=== PATIENT | male | born 1975 | race Caucasian/White ===

== ENCOUNTER 2018-03-26 09:23 | Emergency (ER) | payer MEDICARE ==
[~2018-03-26] VITALS: Ht 190.5 cm; Wt 75.0 kg
[2018-03-26 09:29] VITALS: Ht 190.5 cm; Wt 75.0 kg
[2018-03-26] MEDS ORDERED: LITHIUM CARBON300 MG (09:30)
[2018-03-26] MEDS ORDERED: VISTARIL25 MG (09:30)
[2018-03-26] MEDS ORDERED: SEROQUEL25 MG (09:30)
[2018-03-26 09:48] LABS: BASOPHILS 0.3 % (0-2); EOSINOPHILS 0.2 % (0-7); HEMATOCRIT 41.2 % (42.0-54.0); HEMOGLOBIN 14.4 g/dL (13.5-17.5); IMMATURE GRANULOCYTES 0.3 % (0-5); LYMPHOCYTES 17.7 % (15-50); MCH 30.9 pg (26.0-34.0); MCV 88.4 fL (80.0-100.0); MONOCYTES 6.8 % (2-11); NEUTROPHILS 74.7 % (40-80); PLATELET COUNT 321 10x3/uL (130-400); RBC 4.66 10x6/uL (4.20-6.10); RDW 13.4 % (11.5-14.5); WBC 13.7 10x3/uL (4.8-10.8)
[2018-03-26 10:00] LABS: LITHIUM < 0.20 mmol/L (0.60-1.20)
[2018-03-26 10:06] LABS: ALBUMIN 4.3 g/dL (3.4-5.0); ANION GAP 17.8 mmol/L (8-16); BILIRUBIN - TOTAL 0.9 mg/dL (0.2-1.3); CALCIUM 9.4 mg/dL (8.5-10.1); CARBON DIOXIDE 25.7 mmol/L (21.0-32.0); CREATININE - SERUM 1.3 mg/dL (0.6-1.3); MAGNESIUM - SERUM 2.3 mg/dL (1.8-2.4); POTASSIUM - SERUM 3.5 mmol/L (3.5-5.1); PROTEIN - SERUM 7.9 g/dL (6.4-8.2)
[2018-03-26 11:31] LABS: UDS - AMPHET POSITIVE QUAL (NEGATIVE); UDS - BARB NEGATIVE QUAL (NEGATIVE); UDS - BENZO POSITIVE QUAL (NEGATIVE); UDS - COCAINE NEGATIVE QUAL (NEGATIVE); UDS - OPIATE POSITIVE QUAL (NEGATIVE); UDS - PCP NEGATIVE QUAL (NEGATIVE); UDS - THC POSITIVE QUAL (NEGATIVE)
[2018-03-26 11:52] LABS: APPEARANCE CLEAR (CLEAR); BILIRUBIN NEGATIVE (NEGATIVE); COLOR DK YELLOW (YELLOW); GLUCOSE NEGATIVE (NEGATIVE); KETONE MODERATE mg/dL (NEGATIVE); NITRITE NEGATIVE (NEGATIVE); PROTEIN NEGATIVE (NEGATIVE); SPECIFIC GRAVITY 1.025 (1.005-1.020); UROBILINOGEN NORMAL (NORMAL)
[2018-03-26 12:39] VITALS: BP 117/66
== END 2018-03-26 12:39 | disposition home or self-care (01) ==
LOC: D.ER 09:23 → EDBD 09:23 → D.ER 12:39
PROVIDERS: Family Medicine
DX: Z91.19 Patient's noncompliance with other medical treatment and regimen (principal); D72.829 Elevated white blood cell count, unspecified; F15.10 Other stimulant abuse, uncomplicated; F17.200 Nicotine dependence, unspecified, uncomplicated

== ENCOUNTER 2019-08-17 14:47 | Inpatient (IN) | payer MEDICARE ==
[2019-08-17] VITALS (7 sets, daily range): BP systolic 121–143; BP diastolic 60–99; Ht 190.5 cm; Wt 91.4 kg
[~2019-08-17] VITALS: Ht 190.5 cm; Wt 91.4 kg
[~2019-08-17 14:47] MED LIST: LITHIUM CARBON300 MG; SEROQUEL25 MG; VISTARIL25 MG
[2019-08-17 15:44] LABS: BASOPHILS 0.1 % (0-2); EOSINOPHILS 0.4 % (0-7); HEMATOCRIT 44.5 % (42.0-54.0); HEMOGLOBIN 15.1 g/dL (13.5-17.5); IMMATURE GRANULOCYTES 0.3 % (0-5); LYMPHOCYTES 17.9 % (15-50); MCH 30.1 pg (26.0-34.0); MCHC 33.9 g/dL (31.0-37.0); MCV 88.6 fL (80.0-100.0); MEAN PLATELET VOLUME 9.1 fL (7.4-10.4); MONOCYTES 7.8 % (2-11); NEUTROPHILS 73.5 % (40-80); RBC 5.02 10x6/uL (4.20-6.10); RDW 13.2 % (11.5-14.5); WBC 7.6 10x3/uL (4.8-10.8)
[2019-08-17 15:45] LABS: PLATELET COUNT 247 10x3/uL (130-400)
[2019-08-17 15:52] LABS: BILIRUBIN NEGATIVE (NEGATIVE); GLUCOSE NEGATIVE (NEGATIVE); KETONE MODERATE mg/dL (NEGATIVE); NITRITE NEGATIVE (NEGATIVE); UROBILINOGEN NORMAL (NORMAL)
[2019-08-17 15:55] LABS: INR 1.11 (0.85-1.17); PROTIME 14.3 SECONDS (11.6-15.0)
--- NOTE | 2019-08-17 15:58 | NUR ---
THIS NURSE ATTEMPTED TO COMPLETE SUICIDE ASSESSMENT AT THIS TIME. UNABLE TO COMPLETE DUE TO PT'S CONDITION. PT IN SAFE ROOM FOR SAFETY. PT NOT PLACED IN PAPER SCRUBS FOR SAFETY DUE TO NOT AVAILABLE AT THIS TIME. CHARGE NURSE AND ATTENDING NOTIFIED. WILL ATTEMPT TO COMPLETE ASSESSMENT AT LATER TIME IF NEEDED PER ATTENDING.
[2019-08-17 16:05] LABS: UDS - AMPHET POSITIVE QUAL (NEGATIVE); UDS - BARB NEGATIVE QUAL (NEGATIVE); UDS - BENZO NEGATIVE QUAL (NEGATIVE); UDS - COCAINE NEGATIVE QUAL (NEGATIVE); UDS - OPIATE POSITIVE QUAL (NEGATIVE); UDS - PCP NEGATIVE QUAL (NEGATIVE); UDS - THC POSITIVE QUAL (NEGATIVE)
[2019-08-17 16:14] LABS: ALBUMIN 4.4 g/dL (3.4-5.0); ALKALINE PHOSPHATASE 68 U/L (30-120); ALT (SGPT) 31 U/L (10-68); BILIRUBIN - TOTAL 0.84 mg/dL (0.2-1.3); CALCIUM 9.4 mg/dL (8.5-10.1); CHLORIDE - SERUM 100 mmol/L (98-107); CKMB 27.5 U/L (0.0-3.6); CREATININE - SERUM 1.4 mg/dL (0.6-1.3); GLUCOSE 76 mg/dL (74-106); MAGNESIUM - SERUM 2.3 mg/dL (1.8-2.4); POTASSIUM - SERUM 3.4 mmol/L (3.5-5.1); PROTEIN - SERUM 7.7 g/dL (6.4-8.2); SODIUM 138 mmol/L (136-145); eGFR NON AFRICAN AMERICAN 59 mL/min (90-120)
[2019-08-17 16:15] LABS: CALC OSMOLALITY 276 mosm/kg (275-300); CREATINE KINASE 1560 UL (21-232); TROPONIN-I < 0.017 ng/mL (0.000-0.060); UREA NITROGEN 17 mg/dL (7-18)
--- NOTE | 2019-08-17 17:50 | NUR ---
PT ARRIVED TO UNIT VIA ER STRETCHER. TRANSFERRED TO ICU BED AND HOOKED UP TO ICU MONITOR. VSS. PT LETHARGIC AND FALLS ASLEEP EASILY. AROUSES TO GENTLE SHAKING AND VERBAL STIMULI. CURRENTLY UNABLE TO ANSWER QUESTIONS DUE TO FALLING ASLEEP. DOES FOLLOW SOME SIMPLE COMMANDS. WILL CONTINUE TO MONITOR
--- NOTE | 2019-08-17 19:00 | NUR ---
SHIFT ASSESSMENT COMPLETED. PT CARE ASSUMED, MONITORS ON AND WORKING, VITALS STABLE, CALL LIGHT WITHIN REACH. SEE FLOW SHEET FOR FURTHER DETAILS. WILL CONTINUE TO OBSERVE. PT RESTING QUITELY.
--- NOTE | 2019-08-17 21:00 | NUR ---
pt resting quitely, no changes, call light within reach, will continue to observe.
[2019-08-17 22:49] LABS: CREATINE KINASE 981 UL (21-232); TROPONIN-I < 0.017 ng/mL (0.000-0.060)
--- NOTE | 2019-08-17 23:00 | NUR ---
PT LYING IN BED RESTING RESTING QUITELY. MONITORS ON AND WORKING, VITALS STABLE. CALL LIGHT WITHIN REACH, SEE FLOW SHEET FOR FURTHER DETAILS. WILL CONTINUE TO OBSERVE.
[2019-08-18] VITALS (15 sets, daily range): BP systolic 97–133; BP diastolic 57–99
--- NOTE | 2019-08-18 01:00 | NUR ---
PT AROUSES TO VOICE, PT CONFUSED AND DISORIENTED TO TIME, PLACE AND SITUATION. PT EASILY REORIENTED, PT VOIDS VIA URINAL, GIVEN JELLO AND SPRITE PER PTS REQUEST. CALL LIGHT WITHIN REACH, WILL CONTINUE TO OBSERVE.
--- NOTE | 2019-08-18 03:00 | NUR ---
NICHOLAS French AND ANTOINE BROUGHT TO PT PER PTS REQUEST, PT PLEASANT MOOD, COOPERATIVE. MONITORS ON AND WORKING, VITALS STABLE. CALL LIGHT WITHIN REACH, WILL CONTINUE TO OBSERVE. SEE FLOW SHEET FOR FURTHER DETAILS. WILL CONTINUE TO OBSERVE.
[2019-08-18 04:21] LABS: CKMB 12.7 U/L (0.0-3.6)
[2019-08-18 04:23] LABS: CREATINE KINASE 814 UL (21-232); TROPONIN-I < 0.017 ng/mL (0.000-0.060)
--- NOTE | 2019-08-18 05:00 | NUR ---
pt sitting up in bed, monitors on and working, vitals stable, call light within reach, will continue to observe.
--- NOTE | 2019-08-18 07:00 | NUR ---
PT REPORT RECEIVED FROM ANTISQUEAK WORKER NURSE. NO ACUTE SIGNS OF DISTRESS NOTED. PT RESTING IN BED COMFORTABLY. SHIFT ASSESSMENT COMPLETED. WILL CONTINUE TO MONITOR
[2019-08-18 07:10] LABS: BASOPHILS 0.1 % (0-2); EOSINOPHILS 1.2 % (0-7); HEMOGLOBIN 13.1 g/dL (13.5-17.5); IMMATURE GRANULOCYTES 0.1 % (0-5); LYMPHOCYTES 27.5 % (15-50); MCH 29.7 pg (26.0-34.0); MCHC 32.8 g/dL (31.0-37.0); MONOCYTES 7.9 % (2-11); NEUTROPHILS 63.2 % (40-80); PLATELET COUNT 247 10x3/uL (130-400); RBC 4.41 10x6/uL (4.20-6.10); RDW 13.5 % (11.5-14.5); WBC 7.3 10x3/uL (4.8-10.8)
[2019-08-18 07:20] LABS: MCV 90.7 fL (80.0-100.0)
[2019-08-18 07:32] LABS: ANION GAP 13.1 mmol/L (8-16); BILIRUBIN - TOTAL 0.59 mg/dL (0.2-1.3); CALCIUM 7.9 mg/dL (8.5-10.1); CREATININE - SERUM 1.2 mg/dL (0.6-1.3); MAGNESIUM - SERUM 2.1 mg/dL (1.8-2.4); POTASSIUM - SERUM 3.1 mmol/L (3.5-5.1); PROTEIN - SERUM 5.9 g/dL (6.4-8.2)
[2019-08-18 07:34] LABS: ALBUMIN 3.2 g/dL (3.4-5.0)
--- NOTE | 2019-08-18 09:20 | NUR ---
LAB IN ROOM. DRAWING BLOOD. WILL CONTINUE TO MONITOR
[2019-08-18 10:24] LABS: CREATINE KINASE 649 UL (21-232); TROPONIN-I < 0.017 ng/mL (0.000-0.060)
--- NOTE | 2019-08-18 10:30 | NUR ---
ASSISTED PT UP TO BEDSIDE COMMODE. HAD LARGE BM. ASSISTED BACK TO BED. WANTS TO WALK AROUND A LITTLE BIT. WILL CONTINUE TO MONTIOR
--- NOTE | 2019-08-18 17:44 | NUR ---
RECEIVED REPORT FROM GOMEZ IN ICU. PATIENT TO UNIT SOON.
--- NOTE | 2019-08-18 18:23 | NUR ---
TRANSFERRED TO 2115 VIA WHEECHAIR TO 2115, PRIMARY NURSE BRUNILDA AT BEDSIDE, AAO, AWAITING TO TAKE A SHOWER
--- NOTE | 2019-08-18 18:26 | NUR ---
PATIENT ARRIVED TO UNIT VIA WHEELCHAIR FROM ICU AT THIS TIME. PATIENT ADMITTED TO ROOM 2115. ALERT/ORIENTED. TELEMETRY APPLIED. PATIENT WITH ATTENTION TOWARD TELEVISION AT THIS TIME. NO DISTRESS.
--- NOTE | 2019-08-18 18:35 | NUR ---
TELEMETRY, PATIENT IS SR WITH RATE OF 79. NO DISTRESS.
--- NOTE | 2019-08-18 19:08 | NUR ---
IV FLUIDS INFUSING ORDERED AT THIS TIME. NO DISTRESS.
--- NOTE | 2019-08-18 22:20 | NUR ---
PT ASKING FOR SOMETHING TO HELP HIM REST, PAGE OUT TO DIRECTOR OF HOME ECONOMICS.
--- NOTE | 2019-08-18 23:08 | NUR ---
BENADRYL 25 MG GIVEN AT PT REQUEST FOR INSOMNIA.
[2019-08-19] VITALS: BP 113/67
--- NOTE | 2019-08-19 00:57 | NUR ---
ICE WATER AND LEMON [place] GIVEN AT PT REQUEST.
[2019-08-19 04:00] VITALS: BP 127/81
[2019-08-19 06:11] LABS: BASOPHILS 0.3 % (0-2); EOSINOPHILS 1.4 % (0-7); HEMATOCRIT 37.7 % (42.0-54.0); HEMOGLOBIN 12.3 g/dL (13.5-17.5); LYMPHOCYTES 31.4 % (15-50); MCH 29.6 pg (26.0-34.0); MCHC 32.6 g/dL (31.0-37.0); MCV 90.6 fL (80.0-100.0); MONOCYTES 7.9 % (2-11); RBC 4.16 10x6/uL (4.20-6.10); RDW 13.7 % (11.5-14.5); WBC 6.5 10x3/uL (4.8-10.8)
[2019-08-19 06:27] LABS: PLATELET COUNT 182 10x3/uL (130-400)
[2019-08-19 07:01] LABS: ALBUMIN 3.1 g/dL (3.4-5.0); ALKALINE PHOSPHATASE 57 U/L (30-120); BILIRUBIN - TOTAL 0.12 mg/dL (0.2-1.3); CALC OSMOLALITY 277 mosm/kg (275-300); CALCIUM 8.3 mg/dL (8.5-10.1); CARBON DIOXIDE 25.3 mmol/L (21.0-32.0); CHLORIDE - SERUM 108 mmol/L (98-107); GLUCOSE 103 mg/dL (74-106); MAGNESIUM - SERUM 2.2 mg/dL (1.8-2.4); PROTEIN - SERUM 5.4 g/dL (6.4-8.2); SODIUM 140 mmol/L (136-145); UREA NITROGEN 10 mg/dL (7-18); eGFR NON AFRICAN AMERICAN 87 mL/min (90-120)
--- NOTE | 2019-08-19 07:10 | NUR ---
REPORT RECEIVED FROM BAG CUTTER ANDPATIENT CARE ASSUMED. RECEIVED IN REPORT THAT PATIENT IS REFUSING MOST ALL MEDS AND TMTS.PATIENT LAYING IN BED ON BACK WITH EYES CLOSED AND BREATHING EVENLY. WILL CONTINUE WITH PLAN OF CARE. SR UP X 2 BED IN LOW POSITION AND CALL LIGHT IN REACH.
[2019-08-19 07:12] LABS: ALT (SGPT) 25 U/L (10-68)
[2019-08-19 09:00] VITALS: BP 118/76
[2019-08-19 09:38] LABS: CKMB 3.4 U/L (0.0-3.6)
[2019-08-19 09:39] LABS: CREATINE KINASE 372 UL (21-232)
--- NOTE | 2019-08-19 11:14 | EC ---
PATIENT:HORACE AGUILERA DATE OF SERVICE: 08/17/19 SEX: M MEDICAL RECORD: [id number] DATE OF : [birth year] LOCATION:D.M2 D.211 AGE OF PATIENT: 43 ADMISSION DATE: 08/18/19 REFERRING PHYSICIAN: INTERPRETING PHYSICIAN: DAVID GILLIAM MD ECHOCARDIOGRAM REPORT ECHO CHARGES 4 ECHO COMPLETE Date: 08/18/19 CLINICAL DIAGNOSIS: CP/IV DRUG USE ECHOCARDIOGRAPHIC MEASUREMENTS (adult normal given) AC root (d.<3.7cm) 3.9 cm LV Septum d (<1.2 cm> 1.3 cm Valve Excursion 2.5 cm LV Septum (systole) 1.7 cm Left Atria (s.<4.0cm> 3.7 cm LVPW d(<1.2cm) 1.0 cm RV (d.<2.3cm) 2.5 cm LVPW (sytole) 2.0 cm LV diastole(<5.6CM) 5.3 cm MV E-F(>70mm/sec) cm LV systole 3.5 cm LVOT Diameter 2.1 cm MV exc.(>10mm) cm Est.ejection fraction (50-75%) % DOPPLER: LVIT cm/sec A 39.0 cm/sec E 74.0 cm/sec LA cm/sec RVSP 27.0 mmHg LVOT 86.0 cm/sec AOP1/2T m/s Asc. Ao 118 cm/sec RVOT 62.0 cm/sec RA cm/sec PA 83.0 cm/sec AV Gradient Peak 5.6 mmHg AV Mean 2.8 mmHg AV Area 2.2 cm MV Gradient Peak 3.4 mmHg MV Mean 1.0 mmHg MV Area cm COMMENTS: Parts Cataloguer: Daniel ZHOUOE Scarfing Machine Operator: 3 Dr. Oneill TAPE# PACS Pericardial Effusion N DATE OF SERVICE: Adequate 2D, color flow imaging, spectral Doppler, and M-Mode. Mild LVH. LV internal dimension is normal. Wall motion is normal. EF is greater that or equal to 55%. Aortic valve is tricuspid. No evidence of stenosis by Doppler interrogation. Left atrium is normal. Mitral valve appears normal. Trivial MR. Right-sided chambers are grossly normal. Mild TR. No evidence of vegetation in all 4 cardiac valves. ECHOCARDIOGRAM REPORT [id number] HORACE AGUILERA TRANSINT:[id number] Voice Confirmation ID: [id number] DOCUMENT ID: [id number] DAVID GILLIAM MD at 1114 CC: [id number] DICTATION DATE: 08/18/19 1309 GROUNDS KEEPER: 08/18/19 1425 ADM IN [facility] [address] [place] [address]
[2019-08-19 17:08] VITALS: BP 129/78
[2019-08-19 20:00] VITALS: BP 131/78
--- NOTE | 2019-08-19 21:16 | NUR ---
PT REFUSING TO WEAR TELEMETRY, TELEMETRY BOX RETURNED TO CO.
--- NOTE | 2019-08-20 03:14 | NUR ---
I have reviewed this patient and I concur with the Shift Assessment completed by the Licensed Practical Nurse today this shift.
--- NOTE | 2019-08-20 03:39 | NUR ---
RESTING WITH EYES CLOSED, RESPERATONS EVEN, NO S/S DISTRESS NOTED.
[2019-08-20 06:44] LABS: BASOPHILS 0.2 % (0-2); EOSINOPHILS 2.1 % (0-7); HEMATOCRIT 39.5 % (42.0-54.0); HEMOGLOBIN 13.1 g/dL (13.5-17.5); IMMATURE GRANULOCYTES 0.2 % (0-5); LYMPHOCYTES 31.1 % (15-50); MCH 29.7 pg (26.0-34.0); MCHC 33.2 g/dL (31.0-37.0); MCV 89.6 fL (80.0-100.0); MEAN PLATELET VOLUME 9.6 fL (7.4-10.4); MONOCYTES 7.3 % (2-11); NEUTROPHILS 59.1 % (40-80); PLATELET COUNT 212 10x3/uL (130-400); RBC 4.41 10x6/uL (4.20-6.10); RDW 13.4 % (11.5-14.5); WBC 6.6 10x3/uL (4.8-10.8)
--- NOTE | 2019-08-20 07:10 | NUR ---
REPORT RECEIVED FROM MEDICINAL CHEMIST AND PATIENT CARE ASSUMED. PATIENT LAYING IN BED ON RT SIDE WITH EYES CLOSED AND BREATHING EVENLY. WILL CONTINUE WITH PLAN OF CARE . SR UP X 2 BED IN LOW POSITION AND CALL LIGHT IN REACH.
[2019-08-20 07:24] LABS: ALBUMIN 3.3 g/dL (3.4-5.0); ALKALINE PHOSPHATASE 54 U/L (30-120); ALT (SGPT) 24 U/L (10-68); BILIRUBIN - TOTAL 0.22 mg/dL (0.2-1.3); CALC OSMOLALITY 276 mosm/kg (275-300); CALCIUM 8.2 mg/dL (8.5-10.1); CARBON DIOXIDE 27.5 mmol/L (21.0-32.0); CHLORIDE - SERUM 105 mmol/L (98-107); CKMB 1.6 U/L (0.0-3.6); CREATINE KINASE 231 UL (21-232); CREATININE - SERUM 1.1 mg/dL (0.6-1.3); GLUCOSE 98 mg/dL (74-106); MAGNESIUM - SERUM 1.9 mg/dL (1.8-2.4); POTASSIUM - SERUM 3.9 mmol/L (3.5-5.1); PROTEIN - SERUM 5.9 g/dL (6.4-8.2); SODIUM 139 mmol/L (136-145); UREA NITROGEN 9 mg/dL (7-18); eGFR NON AFRICAN AMERICAN 78 mL/min (90-120)
--- NOTE | 2019-08-20 08:07 | MORECARE ---
CASE MANAGEMENT DISCHARGE SUMMARY PATIENT: HORACE AGUILERA UNIT: [id number] ADM DATE: 08/18/19 AGE: 43 : 75 SEX: M ROOM/BED: D.2116 AUTHOR: SANTOS NEWSOME PHYSICIAN: REFERRING PHYSICIAN: MIRTA CARMONA MD DATE OF SERVICE: 08/20/19 Discharge Plan Patient Name: HORACE [facility] [facility] 1975 Planned Disposition: Anticipated Discharge Date: Discharge Date: Expected LOS: Initial Reviewer: [email or web address] Initial Review Date: 08/17/2019 Generated: 08/20/19 9:06 am Patient Name: HORACE AGUILERA Page [id number] at 0807 All edits/amendments must be made on the electronic document DICTATION DATE: 08/20/19805 COMPLIANCE AUDITOR: ARNULFO 08/20/19805 RPT#: [id number] DC DATE: STATUS: ADM IN [facility] [address] [place] [address] END OF REPORT
--- NOTE | 2019-08-20 08:14 | MORECARE ---
CASE MANAGEMENT DISCHARGE SUMMARY PATIENT: HORACE AGUILERA UNIT: [id number] ADM DATE: 08/18/19 AGE: 43 : 75 SEX: M ROOM/BED: D.2116 AUTHOR: SANTOS NEWSOME PHYSICIAN: REFERRING PHYSICIAN: MIRTA CARMONA MD DATE OF SERVICE: 08/20/19 Discharge Plan Patient Name: HORACE AGUILERA [facility] [facility] 1975 Planned Disposition: Anticipated Discharge Date: Discharge Date: Expected LOS: Initial Reviewer: [email or web address] Initial Review Date: 08/17/2019 Generated: 08/20/19 9:13 am DCPIA - Discharge Planning Initial Assessment Updated by [email or web address]: Carolyne Fowler on 08/20/19 8:08 am * Is the patient Alert and Oriented? Yes * How many steps to enter\exit or inside your home? 0/0 * PCP NONE * Pharmacy NONE * Preadmission Environment Homeless * ADLs Independent * Equipment None * List name and contact numbers for known caregivers / representatives who currently or will assist patient after discharge: N/A * Verbal permission to speak to the caregivers and representatives has been obtained from the patient. N/A * Community resources currently utilized None * Additional services required to return to the preadmission environment? No * Can the patient safely return to the preadmission environment? Yes * Has this patient been hospitalized within the prior 30 days at any hospital? No Last DP export: 08/20/19 7:07 am Patient Name: HORACE AGUILERA Page [id number] at 0814 All edits/amendments must be made on the electronic document DICTATION DATE: 08/20/19812 PRIVATE SECURITY GUARD: ARNULFO 08/20/19812 RPT#: [id number] DC DATE: STATUS: ADM IN [facility] [address] [place] [address] END OF REPORT
--- NOTE | 2019-08-20 08:26 | MORECARE ---
CASE MANAGEMENT DISCHARGE SUMMARY PATIENT: HORACE AGUILERA UNIT: [id number] ADM DATE: 08/18/19 AGE: 43 : 75 SEX: M ROOM/BED: D.2116 AUTHOR: SANTOS NEWSOME PHYSICIAN: REFERRING PHYSICIAN: MIRTA CARMONA MD DATE OF SERVICE: 08/20/19 Discharge Plan Patient Name: HORACE AGUILERA Facility: [facility]:[place] : 1975 Planned Disposition: Anticipated Discharge Date: Discharge Date: Expected LOS: Initial Reviewer: [email or web address] Initial Review Date: 08/17/2019 Generated: 08/20/19 9:26 am Comments DCP- Discharge Planning Updated by [email or web address]: Carolyne Fowler on 08/20/19 7:[address] Patient Name: HORACE AGUILERA Admission Status: ER Accout number: [id number] Admission Date: 08-18-2019 : 1975 Admission Diagnosis: Attending: TRAVON Current LOS: 2 Anticipated DC Date: Planned Disposition: Primary Insurance: MEDICARE A & B Discharge Planning Comments: CM met with patient to complete initial dc planning assessment. CM educated patient on the CM role and verbal consent given by patient to complete assessment. CM verified patient's address, phone number, and emergency contact phone numbers. Patient states he is homeless, [facility], but wants CM to find a place to live because he does not want to do the "dope." States he has an SSI check, but can not afford a 740 per month rent. CM provided a list of local apartments less than 600 per month, and local places that were hiring parts specialist workers. CM also provided a list of local shelters with a residency program to assist Pt for up to a year. At discharge patient plans to return to [facility] and feels this is a safe discharge. CM discussed availability of home health, rehab services, and medical equipment. Patient denied known discharge needs at this time.CM will continue to follow and will assist as needed with dc plans/needs. Pest Control Applicator: Carolyne Fowler DCPIA - Discharge Planning Initial Assessment Updated by [email or web address]: Carolyne Fowler on 08/20/19 8:08 am * Is the patient Alert and Oriented? Yes * How many steps to enter\\exit or inside your home? 0/0 * PCP NONE * Pharmacy NONE * Preadmission Environment Homeless * ADLs Independent * Equipment None * List name and contact numbers for known caregivers / representatives who currently or will assist patient after discharge: N/A * Verbal permission to speak to the caregivers and representatives has been obtained from the patient. N/A * Community resources currently utilized None * Additional services required to return to the preadmission environment? No * Can the patient safely return to the preadmission environment? Yes * Has this patient been hospitalized within the prior 30 days at any hospital? No Last DP export: 08/20/19 7:14 am Patient Name: HORACE AGUILERA Page [phone] at 0826 All edits/amendments must be made on the electronic document DICTATION DATE: 08/20/19825 SANDING LINE OPERATOR: ARNULFO 08/20/19825 RPT#: [id number] DC DATE: STATUS: ADM IN [facility] [address] [place] [address] END OF REPORT
[2019-08-20 09:37] VITALS: BP 121/85
--- NOTE | 2019-08-20 10:43 | NUR ---
PATIENT LAYING IN BED ON BACK WATCHING TV. PATIENT DENIES ANY NEEDS OR PAIN. ASSESSMENT COMPLETED. WILL CONTINUE TO MONITOR. SR UP X 2 BED IN LOW POSITION AND CALL LIGHT IN REACH.
--- NOTE | 2019-08-21 08:27 | MORECARE ---
CASE MANAGEMENT DISCHARGE SUMMARY PATIENT: HORACE AGUILERA UNIT: [id number] ADM DATE: 08/18/19 AGE: 43 : 75 SEX: M ROOM/BED: D.2116 AUTHOR: SANTOS NEWSOME PHYSICIAN: REFERRING PHYSICIAN: MIRTA CARMONA MD DATE OF SERVICE: 08/21/19 Discharge Plan Patient Name: HORACE AGUILERA Facility: [facility]:[place] : 1975 Planned Disposition: Anticipated Discharge Date: Discharge Date: 08/20/2019 Expected LOS: Initial Reviewer: [email or web address] Initial Review Date: 08/17/2019 Generated: 08/21/19 9:26 am Comments DCP- Discharge Planning Updated by [email or web address]: Carolyne Fowler on 08/20/19 7:[address] Patient Name: HORACE AGUILERA Admission Status: ER Accout number: [id number] Admission Date: 08-18-2019 : 1975 Admission Diagnosis: Attending: TRAVON Current LOS: 2 Anticipated DC Date: Planned Disposition: Primary Insurance: MEDICARE A & B Discharge Planning Comments: CM met with patient to complete initial dc planning assessment. CM educated patient on the CM role and verbal consent given by patient to complete assessment. CM verified patient's address, phone number, and emergency contact phone numbers. Patient states he is homeless, and stays at [facility], but wants CM to find a place to live because he does not want to do the "dope." States he has an SSI check, but can not afford a 740 per month rent. CM provided a list of local apartments less than 600 per month, and local places that were hiring department secretary workers. CM also provided a list of local shelters with a residency program to assist Pt for up to a year. At discharge patient plans to return to [facility] and feels this is a safe discharge. CM discussed availability of home health, rehab services, and medical equipment. Patient denied known discharge needs at this time.CM will continue to follow and will assist as needed with dc plans/needs. Professor Of Oceanography: Carolyne Fowler DCPIA - Discharge Planning Initial Assessment Updated by [email or web address]: Carolyne Fowler on 08/20/19 8:08 am * Is the patient Alert and Oriented? Yes * How many steps to enter\\exit or inside your home? 0/0 * PCP NONE * Pharmacy NONE * Preadmission Environment Homeless * ADLs Independent * Equipment None * List name and contact numbers for known caregivers / representatives who currently or will assist patient after discharge: N/A * Verbal permission to speak to the caregivers and representatives has been obtained from the patient. N/A * Community resources currently utilized None * Additional services required to return to the preadmission environment? No * Can the patient safely return to the preadmission environment? Yes * Has this patient been hospitalized within the prior 30 days at any hospital? No Last DP export: 08/20/19 7:26 am Patient Name: HORACE AGUILERA Page [phone] at 0827 All edits/amendments must be made on the electronic document DICTATION DATE: 08/21/19825 DANCE THERAPIST: ARNULFO 08/21/19825 RPT#: [id number] DC DATE:08/20/19 STATUS: DIS IN [address] [place] [address] END OF REPORT
== END 2019-08-20 14:22 | disposition home or self-care (01) | DRG 683 ==
LOC: D.ER 14:47 → D.ICU 17:11 → OBSVTIME 17:11 → D.ICU 17:11 → D.M2 08-18 13:11 → D.ICU 08-18 15:35 → D.M2 08-18 18:27
PROVIDERS: Family Medicine; ADMIT Family Medicine; ATTEND Family Medicine
DX: N17.9 Acute kidney failure, unspecified (principal); M62.82 Rhabdomyolysis; F15.90 Other stimulant use, unspecified, uncomplicated; F12.90 Cannabis use, unspecified, uncomplicated; E87.6 Hypokalemia; R74.0 Nonspecific elevation of levels of transaminase and lactic acid dehydrogenase [LDH]; F25.9 Schizoaffective disorder, unspecified; F31.9 Bipolar disorder, unspecified; E86.0 Dehydration

== ENCOUNTER 2019-08-31 03:50 | Emergency (ER) | payer MEDICARE ==
[~2019-08-31] VITALS: Ht 190.5 cm; Wt 90.9 kg
[2019-08-31 03:55] VITALS: BP 110/63; Ht 190.5 cm; Wt 90.9 kg
[2019-08-31 04:20] LABS: BILIRUBIN NEGATIVE (NEGATIVE); GLUCOSE NEGATIVE (NEGATIVE); KETONE NEGATIVE (NEGATIVE); NITRITE NEGATIVE (NEGATIVE); SPECIFIC GRAVITY 1.025 (1.005-1.020); UROBILINOGEN NORMAL (NORMAL)
[2019-08-31 04:21] LABS: BACTERIA FEW /hpf (NEGATIVE); EPITHELIAL CELLS 0-5 /hpf (0-5); RED CELLS - URINE 0-5 /hpf (0-5); WHITE CELLS - URINE 0-5 /hpf (NEGATIVE)
[2019-08-31 04:22] LABS: UDS - AMPHET POSITIVE QUAL (NEGATIVE); UDS - BARB NEGATIVE QUAL (NEGATIVE); UDS - BENZO POSITIVE QUAL (NEGATIVE); UDS - COCAINE NEGATIVE QUAL (NEGATIVE); UDS - OPIATE NEGATIVE QUAL (NEGATIVE); UDS - PCP NEGATIVE QUAL (NEGATIVE); UDS - THC POSITIVE QUAL (NEGATIVE)
[2019-08-31 04:34] LABS: BASOPHILS 0.2 % (0-2); EOSINOPHILS 0.5 % (0-7); HEMATOCRIT 39.5 % (42.0-54.0); HEMOGLOBIN 13.3 g/dL (13.5-17.5); IMMATURE GRANULOCYTES 0.2 % (0-5); LYMPHOCYTES 18.7 % (15-50); MCHC 33.7 g/dL (31.0-37.0); MCV 89.2 fL (80.0-100.0); MEAN PLATELET VOLUME 8.7 fL (7.4-10.4); NEUTROPHILS 73.4 % (40-80); RBC 4.43 10x6/uL (4.20-6.10); RDW 13.1 % (11.5-14.5); WBC 9.4 10x3/uL (4.8-10.8)
[2019-08-31 04:36] LABS: PLATELET COUNT 308 10x3/uL (130-400)
--- NOTE | 2019-08-31 04:44 | NUR ---
PATIENT IS HERE FOR HAVING SUICIDIAL THOUGHTS BY WANTING TO JUMP IN FRONT OF A CAR OR OVERDOSING AND HAVING THOUGHTS OF HARMING OTHERS, HE IS VERY MANIC AT THIS TIME, HE IS VERY HYPERVERBAL, FLIGHT OF IDEAS. HE WILL BE PLACED ON ONE ON ONE.
[2019-08-31 05:02] LABS: ANION GAP 9.3 mmol/L (8-16); CALCIUM 8.6 mg/dL (8.5-10.1); CARBON DIOXIDE 28.8 mmol/L (21.0-32.0); CREATININE - SERUM 1.5 mg/dL (0.6-1.3); POTASSIUM - SERUM 3.1 mmol/L (3.5-5.1)
[2019-08-31 05:15] LABS: ALBUMIN 3.9 g/dL (3.4-5.0); BILIRUBIN - TOTAL 0.81 mg/dL (0.2-1.3); PROTEIN - SERUM 6.9 g/dL (6.4-8.2); THYROID STIMULATING HORMONE 1.35 uIU/mL (0.36-3.74)
== END 2019-08-31 10:54 ==
LOC: D.ER 03:50
PROVIDERS: Emergency Medicine
DX: F29 Unspecified psychosis not due to a substance or known physiological condition (principal); F19.20 Other psychoactive substance dependence, uncomplicated; R45.851 Suicidal ideations

== ENCOUNTER 2019-09-20 16:05 | Emergency (ER) | payer MEDICARE ==
[~2019-09-20] VITALS: Ht 190.5 cm; Wt 93.2 kg
[2019-09-20 16:36] VITALS: Ht 190.5 cm; Wt 93.2 kg
[2019-09-20] MEDS ORDERED: KEFLEX500 MG PO (17:36)
[2019-09-20 18:19] VITALS: BP 131/89
== END 2019-09-20 18:20 | disposition home or self-care (01) ==
LOC: D.ER 16:05
DX: S71.131A Puncture wound without foreign body, right thigh, initial encounter (principal); S70.11XA Contusion of right thigh, initial encounter; Y08.89XA Assault by other specified means, initial encounter; Y93.9 Activity, unspecified; Y92.9 Unspecified place or not applicable

== ENCOUNTER 2019-09-20 23:13 | Emergency (ER) | payer MEDICARE ==
[~2019-09-20] VITALS: Ht 190.5 cm; Wt 81.8 kg
[~2019-09-20 23:13] MED LIST changes: +KEFLEX500 MG PO
[2019-09-20 23:23] VITALS: Ht 190.5 cm; Wt 81.8 kg
[2019-09-20 23:36] LABS: HEMATOCRIT 38.1 % (42.0-54.0); HEMOGLOBIN 12.7 g/dL (13.5-17.5); LYMPHOCYTES 12.4 % (15-50); MCHC 33.3 g/dL (31.0-37.0); MCV 89.9 fL (80.0-100.0); MEAN PLATELET VOLUME 8.4 fL (7.4-10.4); NEUTROPHILS 81.7 % (40-80); PLATELET COUNT 272 10x3/uL (130-400); RBC 4.24 10x6/uL (4.20-6.10); WBC 12.2 10x3/uL (4.8-10.8)
[2019-09-20 23:41] LABS: BILIRUBIN NEGATIVE (NEGATIVE); GLUCOSE NEGATIVE (NEGATIVE); KETONE NEGATIVE (NEGATIVE); NITRITE NEGATIVE (NEGATIVE); UROBILINOGEN NORMAL (NORMAL)
[2019-09-20 23:48] LABS: ANION GAP 13.5 mmol/L (8-16); CALCIUM 8.2 mg/dL (8.5-10.1); CARBON DIOXIDE 24.9 mmol/L (21.0-32.0); CREATININE - SERUM 1.2 mg/dL (0.6-1.3); POTASSIUM - SERUM 3.4 mmol/L (3.5-5.1)
[2019-09-20 23:51] LABS: UDS - AMPHET POSITIVE QUAL (NEGATIVE); UDS - BARB NEGATIVE QUAL (NEGATIVE); UDS - BENZO NEGATIVE QUAL (NEGATIVE); UDS - COCAINE NEGATIVE QUAL (NEGATIVE); UDS - OPIATE NEGATIVE QUAL (NEGATIVE); UDS - PCP NEGATIVE QUAL (NEGATIVE); UDS - THC POSITIVE QUAL (NEGATIVE)
[2019-09-20 23:54] LABS: ALBUMIN 3.6 g/dL (3.4-5.0); BILIRUBIN - TOTAL 0.43 mg/dL (0.2-1.3); PROTEIN - SERUM 6.6 g/dL (6.4-8.2)
--- NOTE | 2019-09-21 00:01 | NUR ---
DR. REAVES NOTIFIED AND SITTER ORDERED. SITTER AT BEDSIDE. NOTIFIED CHARGE NURSE AND ATTENDING IN REGARDS TO ASSESSMENT FINDINGS. RESOURCES GIVEN TO PT AND SAFETY PLAN INITIATED.
[2019-09-21 04:02] VITALS: BP 111/54
== END 2019-09-21 08:25 ==
LOC: D.ER 23:13
PROVIDERS: Family Medicine
DX: R45.851 Suicidal ideations (principal); F19.10 Other psychoactive substance abuse, uncomplicated; R45.1 Restlessness and agitation

== ENCOUNTER 2019-10-01 23:39 | Emergency (ER) | payer MEDICARE ==
[~2019-10-01] VITALS: Ht 190.5 cm; Wt 93.2 kg
[2019-10-01 23:42] VITALS: Ht 190.5 cm; Wt 93.2 kg
[2019-10-02 00:59] LABS: HEMATOCRIT 41.7 % (42.0-54.0); HEMOGLOBIN 13.8 g/dL (13.5-17.5); LYMPHOCYTES 13.8 % (15-50); MCH 29.9 pg (26.0-34.0); MCHC 33.1 g/dL (31.0-37.0); MCV 90.3 fL (80.0-100.0); MEAN PLATELET VOLUME 8.2 fL (7.4-10.4); PLATELET COUNT 322 10x3/uL (130-400); RBC 4.62 10x6/uL (4.20-6.10); RDW 12.7 % (11.5-14.5); WBC 13.3 10x3/uL (4.8-10.8)
[2019-10-02 01:05] LABS: BILIRUBIN NEGATIVE (NEGATIVE); GLUCOSE NEGATIVE (NEGATIVE); KETONE NEGATIVE (NEGATIVE); NITRITE NEGATIVE (NEGATIVE); SPECIFIC GRAVITY 1.015 (1.005-1.020); UROBILINOGEN NORMAL (NORMAL)
[2019-10-02 01:06] LABS: BACTERIA NONE SEEN /hpf (NEGATIVE); EPITHELIAL CELLS NSEEN /hpf (0-5); RED CELLS - URINE 0-5 /hpf (0-5); UDS - AMPHET NEGATIVE QUAL (NEGATIVE); UDS - BARB NEGATIVE QUAL (NEGATIVE); UDS - BENZO NEGATIVE QUAL (NEGATIVE); UDS - COCAINE NEGATIVE QUAL (NEGATIVE); UDS - OPIATE NEGATIVE QUAL (NEGATIVE); UDS - PCP NEGATIVE QUAL (NEGATIVE); UDS - THC POSITIVE QUAL (NEGATIVE); WHITE CELLS - URINE NSEEN /hpf (NEGATIVE)
[2019-10-02 01:11] LABS: ANION GAP 13.1 mmol/L (8-16); CALCIUM 9.1 mg/dL (8.5-10.1); CARBON DIOXIDE 28.8 mmol/L (21.0-32.0); CREATININE - SERUM 1.8 mg/dL (0.6-1.3); POTASSIUM - SERUM 3.9 mmol/L (3.5-5.1)
[2019-10-02 01:17] LABS: ALBUMIN 4.1 g/dL (3.4-5.0); BILIRUBIN - TOTAL 0.47 mg/dL (0.2-1.3); MAGNESIUM - SERUM 2.9 mg/dL (1.8-2.4); PROTEIN - SERUM 7.9 g/dL (6.4-8.2)
[2019-10-02 04:37] VITALS: BP 112/68
== END 2019-10-02 04:37 | disposition home or self-care (01) ==
LOC: D.ER 23:39
PROVIDERS: Emergency Medicine
DX: F15.10 Other stimulant abuse, uncomplicated (principal); F22 Delusional disorders; F25.9 Schizoaffective disorder, unspecified

== ENCOUNTER 2019-10-09 07:20 | Emergency (ER) | payer MEDICARE ==
[~2019-10-09] VITALS: Ht 190.5 cm; Wt 93.2 kg
[2019-10-09 07:28] VITALS: Ht 190.5 cm; Wt 93.2 kg
[2019-10-09] MEDS ORDERED: DEPAKOTE500 MG PO (07:33)
[2019-10-09] MEDS ORDERED: ZYPREXA2.5 MG PO (07:34)
[2019-10-09] MEDS ORDERED: BUSPAR5 MG PO (07:34)
[2019-10-09 07:51] LABS: BASOPHILS 0.3 % (0-2); EOSINOPHILS 1.8 % (0-7); HEMATOCRIT 41.6 % (42.0-54.0); HEMOGLOBIN 13.8 g/dL (13.5-17.5); IMMATURE GRANULOCYTES 0.3 % (0-5); LYMPHOCYTES 12.7 % (15-50); MCH 30.5 pg (26.0-34.0); MCHC 33.2 g/dL (31.0-37.0); MCV 91.8 fL (80.0-100.0); MEAN PLATELET VOLUME 8.7 fL (7.4-10.4); NEUTROPHILS 77.9 % (40-80); PLATELET COUNT 316 10x3/uL (130-400); RBC 4.53 10x6/uL (4.20-6.10); RDW 13.4 % (11.5-14.5); WBC 11.5 10x3/uL (4.8-10.8)
[2019-10-09 08:04] LABS: ANION GAP 9.2 mmol/L (8-16); CALCIUM 9.1 mg/dL (8.5-10.1); CARBON DIOXIDE 28.6 mmol/L (21.0-32.0); CREATININE - SERUM 1.2 mg/dL (0.6-1.3); POTASSIUM - SERUM 3.8 mmol/L (3.5-5.1)
[2019-10-09 08:10] LABS: ALBUMIN 3.5 g/dL (3.4-5.0); BILIRUBIN - TOTAL 0.22 mg/dL (0.2-1.3); PROTEIN - SERUM 7.3 g/dL (6.4-8.2)
--- NOTE | 2019-10-09 08:17 | NUR ---
DR. REAVES NOTIFIED AND REVIEWED PT'S BEHAVIOR AND ASSESSMENT RESULTS. PT IS A LOW RISK PER DR. FOX. DR. REAVES STATED TO GIVE RESOURCES TO PT AT TIME. RESOURCES REVIEWED WITH PT AND HE VERBAIZIED UNDERSTANDING.
--- NOTE | 2019-10-09 08:22 | NUR ---
DR. FOX NOTIFIED AND REVIEWED PT'S BEHAVIOR AND ASSESSMENT RESULTS. PT IS A MODERATE RISK PER DR. REAVES. DR. REAVES STATED TO GIVE RESOURCES TO PT AT TIME OF DISCHARGE. REVIEWED WITH PT AND HE VERBALIZIED UNDERSTANDING.
[2019-10-09 21:13] LABS: MAGNESIUM - SERUM 1.9 mg/dL (1.8-2.4)
[2019-10-09 21:28] LABS: VALPROIC ACID (DEPAKOTE) < 3.0 ug/mL (50.0-100.0)
[2019-10-09 21:30] LABS: BILIRUBIN NEGATIVE (NEGATIVE); GLUCOSE NEGATIVE (NEGATIVE); KETONE NEGATIVE (NEGATIVE); NITRITE NEGATIVE (NEGATIVE); UROBILINOGEN NORMAL (NORMAL)
[2019-10-09 21:39] LABS: UDS - AMPHET NEGATIVE QUAL (NEGATIVE); UDS - BARB NEGATIVE QUAL (NEGATIVE); UDS - BENZO NEGATIVE QUAL (NEGATIVE); UDS - COCAINE NEGATIVE QUAL (NEGATIVE); UDS - OPIATE NEGATIVE QUAL (NEGATIVE); UDS - PCP NEGATIVE QUAL (NEGATIVE); UDS - THC NEGATIVE QUAL (NEGATIVE)
[2019-10-10 00:41] VITALS: BP 148/88
== END 2019-10-10 00:43 | disposition other institution (70) ==
LOC: D.ER 07:20
PROVIDERS: Family Medicine
DX: H70.90 Unspecified mastoiditis, unspecified ear (principal); R44.0 Auditory hallucinations; F20.9 Schizophrenia, unspecified; R45.851 Suicidal ideations

== ENCOUNTER 2019-10-31 19:05 | Emergency (ER) | payer MEDICARE ==
[2019-10-09 07:28] VITALS: Ht 190.5 cm; Wt 90.9 kg
[~2019-10-31] VITALS: Ht 190.5 cm; Wt 90.9 kg
[~2019-10-31 19:05] MED LIST changes: +BUSPAR5 MG PO; +DEPAKOTE500 MG PO; +ZYPREXA2.5 MG PO
[2019-10-31 19:25] LABS: BILIRUBIN NEGATIVE (NEGATIVE); GLUCOSE NEGATIVE (NEGATIVE); KETONE NEGATIVE (NEGATIVE); NITRITE NEGATIVE (NEGATIVE); UROBILINOGEN NORMAL (NORMAL)
[2019-10-31 19:33] LABS: UDS - AMPHET NEGATIVE QUAL (NEGATIVE); UDS - BARB NEGATIVE QUAL (NEGATIVE); UDS - BENZO NEGATIVE QUAL (NEGATIVE); UDS - COCAINE NEGATIVE QUAL (NEGATIVE); UDS - OPIATE NEGATIVE QUAL (NEGATIVE); UDS - PCP NEGATIVE QUAL (NEGATIVE); UDS - THC POSITIVE QUAL (NEGATIVE)
[2019-10-31 19:56] LABS: BASOPHILS 0.3 % (0-2); EOSINOPHILS 0.9 % (0-7); HEMATOCRIT 42.6 % (42.0-54.0); HEMOGLOBIN 14.2 g/dL (13.5-17.5); IMMATURE GRANULOCYTES 0.4 % (0-5); LYMPHOCYTES 14.2 % (15-50); MCH 30.5 pg (26.0-34.0); MCHC 33.3 g/dL (31.0-37.0); MCV 91.6 fL (80.0-100.0); MEAN PLATELET VOLUME 8.6 fL (7.4-10.4); MONOCYTES 8.9 % (2-11); NEUTROPHILS 75.3 % (40-80); PLATELET COUNT 287 10x3/uL (130-400); RBC 4.65 10x6/uL (4.20-6.10); RDW 13.9 % (11.5-14.5); WBC 11.9 10x3/uL (4.8-10.8)
[2019-10-31 19:59] LABS: ANION GAP 12.2 mmol/L (8-16); CARBON DIOXIDE 29.8 mmol/L (21.0-32.0); CREATININE - SERUM 1.2 mg/dL (0.6-1.3)
[2019-10-31 20:05] LABS: ALBUMIN 4.1 g/dL (3.4-5.0); BILIRUBIN - TOTAL 0.26 mg/dL (0.2-1.3); PROTEIN - SERUM 7.9 g/dL (6.4-8.2); VALPROIC ACID (DEPAKOTE) 9.4 ug/mL (50.0-100.0)
[2019-10-31] MEDS ORDERED: IBUPROFEN800 MG PO (21:03)
[2019-10-31 21:13] VITALS: BP 128/89
== END 2019-10-31 21:21 | disposition home or self-care (01) ==
LOC: D.ER 19:05
PROVIDERS: Family Medicine
DX: S93.402A Sprain of unspecified ligament of left ankle, initial encounter (principal); X58.XXXA Exposure to other specified factors, initial encounter; S99.912A Unspecified injury of left ankle, initial encounter; M25.572 Pain in left ankle and joints of left foot; F31.9 Bipolar disorder, unspecified

== ENCOUNTER 2020-06-11 23:23 | Emergency (ER) | payer MEDICARE ==
[~2020-06-11] VITALS: Ht 190.5 cm; Wt 81.6 kg
[~2020-06-11 23:23] MED LIST changes: +IBUPROFEN800 MG PO
[2020-06-11 23:25] VITALS: Ht 190.5 cm; Wt 81.6 kg
[2020-06-11 23:46] LABS: BASOPHILS 0.4 % (0-2); EOSINOPHILS 3.1 % (0-7); HEMATOCRIT 39.1 % (42.0-54.0); HEMOGLOBIN 12.6 g/dL (13.5-17.5); IMMATURE GRANULOCYTES 0.3 % (0-5); LYMPHOCYTE ABS# 1.95 10x3/uL (1.32-3.57); LYMPHOCYTES 18.3 % (15-50); MCH 28.5 pg (26.0-34.0); MCHC 32.2 g/dL (31.0-37.0); MCV 88.5 fL (80.0-100.0); MEAN PLATELET VOLUME 8.6 fL (7.4-10.4); MONOCYTES 6.6 % (2-11); NEUTROPHIL ABS# 7.59 10x3/uL (1.78-5.38); NEUTROPHILS 71.3 % (40-80); PLATELET COUNT 287 10x3/uL (130-400); RBC 4.42 10x6/uL (4.20-6.10); RDW 13.8 % (11.5-14.5); WBC 10.6 10x3/uL (4.8-10.8)
[2020-06-11 23:53] LABS: CALC OSMOLALITY 275 mosm/kg (275-300); CALCIUM 8.7 mg/dL (8.5-10.1); CARBON DIOXIDE 26.9 mmol/L (21.0-32.0); CHLORIDE - SERUM 104 mmol/L (98-107); GLUCOSE 104 mg/dL (74-106); POTASSIUM - SERUM 3.7 mmol/L (3.5-5.1); SODIUM 139 mmol/L (136-145); UREA NITROGEN 8 mg/dL (7-18); eGFR NON AFRICAN AMERICAN 86 mL/min (90-120)
[2020-06-11 23:54] LABS: BILIRUBIN NEGATIVE (NEGATIVE); KETONE NEGATIVE (NEGATIVE); NITRITE NEGATIVE (NEGATIVE); UROBILINOGEN NORMAL mg/dL (< 2)
[2020-06-11 23:56] LABS: UDS - AMPHET NEGATIVE QUAL (NEGATIVE); UDS - BARB NEGATIVE QUAL (NEGATIVE); UDS - BENZO NEGATIVE QUAL (NEGATIVE); UDS - COCAINE NEGATIVE QUAL (NEGATIVE); UDS - OPIATE NEGATIVE QUAL (NEGATIVE); UDS - PCP NEGATIVE QUAL (NEGATIVE); UDS - THC POSITIVE QUAL (NEGATIVE)
[2020-06-11 23:56] LABS: ALBUMIN 3.2 g/dL (3.4-5.0); ALKALINE PHOSPHATASE 145 U/L (30-120); ALT (SGPT) 63 U/L (10-68); BILIRUBIN - TOTAL 0.15 mg/dL (0.2-1.3); MAGNESIUM - SERUM 1.9 mg/dL (1.8-2.4); PROTEIN - SERUM 7.2 g/dL (6.4-8.2)
[2020-06-12 00:09] LABS: SARS-CoV-2 ANTIGEN NEGATIVE- SARS-COV-2 (NEGATIVE)
--- NOTE | 2020-06-12 00:55 | NUR ---
DR. REAVES NOTIFIED AND SITTER ORDERED. SITTER AT BEDSIDE. NOTIFIED CHARGE NURSE AND ATTENDING IN REGARDS TO ASSESSMENT FINDINGS. RESOURCES GIVEN TO PT AND SAFETY PLAN INITIATED.
[2020-06-12 04:26] VITALS: BP 132/77
== END 2020-06-12 04:27 ==
LOC: D.ER 23:23
PROVIDERS: Family Medicine
DX: R45.851 Suicidal ideations (principal); F31.9 Bipolar disorder, unspecified; F15.11 Other stimulant abuse, in remission